=== PATIENT | female | born 1990 | race Caucasian/White ===

== ENCOUNTER 2017-06-07 19:06 | Emergency (ER) | payer SELFPAY ==
[2017-06-07 19:06] VITALS: BMI 107.6
[2017-06-07 19:20] VITALS: RESP 16; O2SAT 100
[2017-06-07 20:10] LABS: HCG,QUALITATIVE URINE POSITIVE (NEGATIVE); SQUAMOUS EPITHIAL 6 /hpf (0-5); URINE BACTERIA RARE (<OCC); URINE BILIRUBIN NEGATIVE (NEGATIVE); URINE CLARITY Hazy (Clear); URINE COLOR Yellow (YELLOW); URINE GLUCOSE (UA) NORMAL (Normal); URINE LEUKOCYTE ESTERASE NEG Leu/uL (Negative); URINE NITRATE NEGATIVE (NEGATIVE); URINE PROTEIN NEGATIVE (NEGATIVE); URINE UROBILINOGEN NORMAL mg/dL (0.2-1.0)
[2017-06-07 20:12] LABS: URINE BLOOD NEGATIVE (NEGATIVE)
[2017-06-07] MEDS ORDERED: Sodium Chloride 0.9% 1,000 ML IV ONE (21:01)
--- NOTE | 2017-06-07 21:01 | C.PDOC ---
History Of Present Illness Patient presents to the ER with a complaint of abdominal pain, nausea, and vomiting. Patient's LMP was 05/03; she is P:1 AB:1. Denies fever or chills. Time Seen by Provider: 06/07/17 21:01 Chief Complaint (Nursing): Abdominal Pain History Per: Patient History/Exam Limitations: no limitations Onset/Duration Of Symptoms: Days Current Symptoms Are (Timing): Still Present Location Of Pain/Discomfort: Epigastric Radiation Of Pain To:: None Quality Of Discomfort: Unable To Describe Associated Symptoms: Nausea, Vomiting. denies: Fever, Chills Exacerbating Factors: None Alleviating Factors: None Recent travel outside of the [place]: No Abnormal Vaginal Bleeding: No : 3 Para: 1 Miscarriage: 1 Past Medical History Reviewed: Historical Data, Nursing Documentation, Vital Signs Vital Signs: Last Vital Signs Temp 98.6 F 06/07/17 23:13 Pulse 82 06/07/17 23:13 Resp 16 06/07/17 23:13 BP 103/70 06/07/17 23:13 Pulse Ox 100 06/07/17 23:13 - Medical History PMH: No Chronic Diseases Surgical History: No Surg Hx Family History: States: Unknown Family Hx - Social History Hx Tobacco Use: No Hx Alcohol Use: No Hx Substance Use: No - Immunization History Hx Tetanus Toxoid Vaccination: Yes Hx Influenza Vaccination: No Hx Pneumococcal Vaccination: Yes Review Of Systems Constitutional: Negative for: Fever, Chills Gastrointestinal: Positive for: Nausea, Vomiting, Abdominal Pain Physical Exam - Physical Exam Appears: Non-toxic Skin: Warm, Dry Oral Mucosa: Moist Chest: Symmetrical, No Tenderness Cardiovascular: Rhythm Regular, No Murmur Respiratory: No Rales, No Rhonchi, No Wheezing Gastrointestinal/Abdominal: Soft, Tenderness (Mild epigastric) Neurological/Psych: Oriented x3 ED Course And Treatment - Laboratory Results Result Diagrams: 06/07/17 21:12 06/07/17 21:12 O2 Sat by Pulse Oximetry: 100 (Room air) Pulse Ox Interpretation: Normal Progress Note: Blood work ordered. IV fluids administered. Disposition Counseled Patient/Family Regarding: Studies Performed, Diagnosis, Need For Followup - Disposition Referrals: [facility] [Outside] [facility] [Outside] Disposition: HOME/ ROUTINE Disposition Time: 21:01 Condition: FAIR Instructions: Threatened Miscarriage (ED) - Clinical Impression Clinical Impression: Threatened in early - Scribe Statement The provider has reviewed the documentation as recorded by the Scribrich Harrison All medical record entries made by the Niloibe were at my direction and personally dictated by me. I have reviewed the chart and agree that the record accurately reflects my personal performance of the history, physical exam, medical decision making, and the department course for this patient. I have also personally directed, reviewed, and agree with the discharge instructions and disposition.
[2017-06-07] MEDS ORDERED: Sodium Chloride 0.9% 1,000 ML ONE (21:12)
[2017-06-07 21:21] LABS: BASO % 0.3 % (0.0-2.0); EOS # 0.1 K/uL (0.0-0.7); EOS % 0.8 % (0.0-4.0); HEMOGLOBIN 12.1 g/dL (11.0-16.0); LYMPH # 2.5 K/uL (1.0-4.3); LYMPH % 20.4 % (20.0-40.0); MEAN CELL VOLUME 81.4 fL (81.0-99.0); MEAN CORPUSCULAR HEMOGLOBIN 26.1 pg (27.0-31.0); MEAN PLATELET VOLUME 9.3 fL (7.2-11.7); MONO # 0.7 K/uL (0.0-0.8); MONO % 6.1 % (0.0-10.0); NEUT # 8.8 K/uL (1.8-7.0); NEUT % 72.4 % (50.0-75.0); RBC 4.64 Mil/uL (3.80-5.20); RED CELL DISTRIBUTION WIDTH 14.3 % (11.5-14.5); WHITE BLOOD COUNT 12.1 K/uL (4.8-10.8)
[2017-06-07 21:37] LABS: ALBUMIN 3.9 g/dL (3.5-5.0)
[2017-06-07 21:39] LABS: GFR AFRICAN-AMERICAN > 60; GFR NON-AFRICAN AMERICAN > 60
[2017-06-07 21:40] LABS: ALB/GLOB RATIO 1.2 (1.0-2.1); ALT/SGPT 22 U/L (9-52); AST/SGOT 28 U/L (14-36); BLOOD UREA NITROGEN 13 mg/dL (7-17)
--- NOTE | 2017-06-07 23:08 | US ---
EXAM: US First Trimester, Transabdominal CLINICAL HISTORY: 26 years old, female; Pain; complicated by abdominal or pelvic pain; Lower; First trimester; Gestational age or lmp: 05/09/2017; ; Additional info: Abd pain, TECHNIQUE: Real-time transabdominal obstetrical ultrasound of the maternal pelvis and a first trimester with image documentation. COMPARISON: No relevant prior studies available. FINDINGS: Gestation: Gestational sac. Yolk sac. No pole. Mean sac diameter of 0.89 cm, out of range. Uterus/cervix: No subchorionic hemorrhage. No cervical dilatation or effacement. Ovaries: RIGHT ovary: 5.0 x 4.2 x 4.6 cm anechoic lesion. LEFT ovary: Normal. No adnexal masses. Free fluid: No significant free fluid. IMPRESSION: 1. Intrauterine , of uncertain viability. Recommend followup. 2. RIGHT ovarian cyst. 3. Incidental/non-acute findings are described above. EXAM: US , Transvaginal CLINICAL HISTORY: 26 years old, female; Pain; complicated by abdominal or pelvic pain; Lower; First trimester; Gestational age or lmp: 05/09/2017; ; Additional info: Abd pain, TECHNIQUE: Real-time transvaginal obstetrical ultrasound of the maternal pelvis and a first trimester with image documentation. Transvaginal imaging was used for better evaluation of the fetus and adnexa. COMPARISON: No relevant prior studies available. FINDINGS: Gestation: Gestational sac. Yolk sac. No pole. Mean sac diameter of 0.89 cm, out of range. Uterus/cervix: No subchorionic hemorrhage. No cervical dilatation or effacement. Ovaries: RIGHT ovary: 5.0 x 4.2 x 4.6 cm anechoic lesion. LEFT ovary: Normal. No adnexal masses. Free fluid: No significant free fluid.
[2017-06-07 23:14] VITALS: BP 103/70; PULSE 82; TEMP 98.6
== END 2017-06-08 00:05 | disposition home or self-care (01) ==
LOC: C.ER 19:06
DX: O20.0 Threatened abortion (principal); Z3A.00 Weeks of gestation of pregnancy not specified
CPT/HCPCS: 76805; 76817; 80053; 81001; 84702; 84703; 85025; 86850; 86900; 96360; 99284; J7040

== ENCOUNTER 2017-06-14 19:18 | Emergency (ER) | payer SELFPAY ==
[2017-06-14 19:19] VITALS: BMI 107.6
--- NOTE | 2017-06-14 20:06 | C.PDOC ---
History Of Present Illness 26 year old female, P:1 AB:1, who presents to the ER for a repeat HCG. Patient was seen a few days ago for pelvic pain, had a work up done, and was told to return for a repeat HCG. The patient has no abdominal pain or vaginal bleeding at this time. Denies fever, chills, nausea, vomiting, or abdominal pain. LMP was 614. Time Seen by Provider: 06/14/17 19:45 Chief Complaint (Nursing): Medical Clearance History Per: Patient History/Exam Limitations: no limitations Onset/Duration Of Symptoms: Hrs Current Symptoms Are (Timing): Still Present Reports Recently: Seen In ED Recent travel outside of the [place]: No Past Medical History Reviewed: Historical Data, Nursing Documentation, Vital Signs Vital Signs: Last Vital Signs Temp 98 F 06/14/17 21:44 Pulse 78 06/14/17 21:44 Resp 20 06/14/17 21:44 BP 123/71 06/14/17 21:44 Pulse Ox 98 06/14/17 21:44 - Medical History PMH: No Chronic Diseases Surgical History: No Surg Hx Family History: States: Unknown Family Hx - Social History Hx Tobacco Use: No Hx Alcohol Use: No Hx Substance Use: No - Immunization History Hx Tetanus Toxoid Vaccination: Yes Hx Influenza Vaccination: Yes Hx Pneumococcal Vaccination: Yes Review Of Systems Constitutional: Negative for: Fever, Chills Cardiovascular: Negative for: Chest Pain, Palpitations Respiratory: Negative for: Cough, Shortness of Breath Gastrointestinal: Negative for: Nausea, Vomiting, Abdominal Pain Genitourinary: Negative for: Dysuria, Frequency, Incontinence, Vaginal Discharge , Vaginal Bleeding, Pelvic Pain Physical Exam - Physical Exam Appears: Non-toxic Skin: Normal Color, Warm, Dry, No Pale, No Rash Head: Atraumatic, Normacephalic Eye(s): bilateral: Normal Inspection Oral Mucosa: Moist Chest: Symmetrical, No Tenderness Cardiovascular: Rhythm Regular, No Murmur Respiratory: Normal Breath Sounds, No Rales, No Rhonchi, No Wheezing Gastrointestinal/Abdominal: Soft, No Tenderness Extremity: Normal ROM, No Swelling Neurological/Psych: Oriented x3, Normal Speech, Normal Cognition Gait: Steady ED Course And Treatment - Laboratory Results Lab Interpretation: Normal O2 Sat by Pulse Oximetry: 100 (Room air) Pulse Ox Interpretation: Normal Medical Decision Making Medical Decision Making: Beta HCG test ordered. HCG levels are raising normally. On re-exam, the patient reports that she feels well. Lungs are CTA, heart is RRR, Abdomen is soft, non- tender and patient is tolerating PO well. Follow up with the medical doctor within 1-2 days. Return if worsened. Disposition - Disposition Referrals: [facility] [Outside] Disposition: HOME/ ROUTINE Disposition Time: 21:10 Condition: GOOD Additional Instructions: Follow up with the medical doctor within 1-2 days. Return if worsened. Instructions: (ED) Forms: [employer] (Slovak) Print Language: TAIWANESE - Clinical Impression Clinical Impression: - Scribe Statement The provider has reviewed the documentation as recorded by the Scribe Kwadwo Harrison All medical record entries made by the Niloibe were at my direction and personally dictated by me. I have reviewed the chart and agree that the record accurately reflects my personal performance of the history, physical exam, medical decision making, and the department course for this patient. I have also personally directed, reviewed, and agree with the discharge instructions and disposition.
[2017-06-14 21:45] VITALS: BP 123/71; PULSE 78; RESP 20; TEMP 98
[2017-06-14 22:12] VITALS: O2SAT 100
== END 2017-06-14 21:43 | disposition home or self-care (01) ==
LOC: C.EROB 19:18
DX: Z32.01 Encounter for pregnancy test, result positive (principal)

== ENCOUNTER 2017-08-08 08:24 | Emergency (ER) | payer OTHER ==
[2017-08-08 08:24] VITALS: BMI 107.6
[2017-08-08 08:33] VITALS: O2SAT 99
--- NOTE | 2017-08-08 09:03 | C.PDOC ---
History Of Present Illness 26 year old female with no past medical history presents to the ED with complaints of intermittent gradual onset headache for one week with associated nausea. Patient notes pain has been worsening and constant since yesterday with one episode of vomiting today. She is A1 and is currently approximately three months . Patient denies history of headaches, fever, neck pain, dysuria, cough, shortness of breath, chest pain, or abdominal pain. Time Seen by Provider: 08/08/17 09:02 Chief Complaint (Nursing): Headache History Per: Patient History/Exam Limitations: no limitations Onset/Duration Of Symptoms: Days (1 week), Intermittent Episodes, Gradual, Worse Since (yesterday ) Current Symptoms Are (Timing): Still Present Preceeding Symptoms: None Associated Symptoms: Nausea, Vomiting (1 episode today ) Recent travel outside of the [place]: No Past Medical History Reviewed: Historical Data, Nursing Documentation, Vital Signs Vital Signs: Last Vital Signs Temp 98.0 F 08/08/17 11:44 Pulse 83 08/08/17 11:44 Resp 16 08/08/17 11:44 BP 110/72 08/08/17 11:44 Pulse Ox 99 08/08/17 11:44 Family History: States: Other Other Family History: Non-contributory. - Social History Hx Tobacco Use: No Hx Alcohol Use: No Hx Substance Use: No - Immunization History Hx Tetanus Toxoid Vaccination: Yes Hx Influenza Vaccination: Yes Hx Pneumococcal Vaccination: Yes Review Of Systems Except As Marked, All Systems Reviewed And Found Negative. Constitutional: Negative for: Fever Gastrointestinal: Negative for: Abdominal Pain Genitourinary: Negative for: Dysuria, Vaginal Bleeding Physical Exam - Physical Exam Appears: Well, Non-toxic, No Acute Distress Skin: Warm, Dry Head: Atraumatic Eye(s): bilateral: PERRL, EOMI Oral Mucosa: Moist Neck: Normal ROM, Supple Cardiovascular: Rhythm Regular Respiratory: No Decreased Breath Sounds, No Accessory Muscle Use, No Rales, No Rhonchi, No Wheezing Gastrointestinal/Abdominal: Soft, No Tenderness, Other (gravid) Extremity: No Swelling Neurological/Psych: Oriented x3, Normal Cranial Nerves, No Cerebellar Signs, Normal Motor, Normal Sensation, Other (no focal deficits) ED Course And Treatment O2 Sat by Pulse Oximetry: 99 (room air ) Progress Note: MRI of the brain without contrast was ordered. Patient was given tylenol and UA was performed. Ultrasound at bed side shows HR of 150 bpm. Medical Decision Making Medical Decision Makinam pt reports feeling better. disc MRI results, plan for rx, f/u, rtr. PROCEDURE: MRI BRAIN WITHOUT CONTRAST HISTORY: with headache x 1 week COMPARISON: None. TECHNIQUE: Multiplanar, multisequence MR images of the brain were obtained without intravenous contrast enhancement. FINDINGS: HEMORRHAGE: None DWI: No evidence of an acute or early subacute infarction. BRAIN PARENCHYMA: There is a questionable punctate area of increased subcortical long TR signal identified they right frontal lobe posteriorly but this is seen only in the sagittal FLAIR sequence and not the axial T2 or axial FLAIR sequences. This may be artifactual. The significance of this finding is uncertain. Remaining white and quezada matter signal above and below the tentorium is unremarkable including throughout the brainstem. There is no mass effect. There is no suspicious extra-axial collection appreciated and the midline brain anatomy appears normal including the corpus callosum. The craniocervical junction appears intact. VENTRICLES: Unremarkable. No hydrocephalus. CRANIUM: Unremarkable. ORBITS: Grossly unremarkable. PARANASAL SINUSES/MASTOIDS: Limited bilateral ethmoid mucosal inflammatory changes are identified. VASCULAR SYSTEM: Skull base flow voids intact. OTHER FINDINGS: None. IMPRESSION: 1. No acute intracranial hemorrhage, mass effect or definitive brain infarction is identified. A punctate area of increased long TR signal is appreciated at the right frontal lobe seen only on 1 sequence. The significance this finding is unclear and may be artifactual. Remaining brain parenchyma appears within normal limits including the cerebellum and brainstem. 2. Incidental trace ethmoid sinus disease bilaterally. Disposition - Disposition Disposition: HOME/ ROUTINE Disposition Time: 11:27 Condition: IMPROVED Additional Instructions: Please follow up with your doctor. Take medication as directed. Take tylenol for headache. Return to the ER for any worsening symptoms, fever, or for any other concerns. Prescriptions: Nitrofurantoin Macrocrystals [Macrobid] 100 mg PO BID #14 cap Instructions: Urinary Tract Infection in (ED) Forms: Gen Discharge Inst Irish, [facility] (Bulgarian) Print Language: ROMANIAN - Clinical Impression Clinical Impression: Headache, UTI in - Scribe Statement The provider has reviewed the documentation as recorded by the Scribe Priscila Espitia All medical record entries made by the Scribe were at my direction and personally dictated by me. I have reviewed the chart and agree that the record accurately reflects my personal performance of the history, physical exam, medical decision making, and the department course for this patient. I have also personally directed, reviewed, and agree with the discharge instructions and disposition.
[2017-08-08 09:09] LABS: RBC URINE 13 /hpf (0-3); URINE BACTERIA MOD (<OCC); URINE BILIRUBIN NEGATIVE (NEGATIVE); URINE BLOOD 1+ (NEGATIVE); URINE COLOR Red (YELLOW); URINE GLUCOSE (UA) NORMAL (Normal); URINE KETONE TRACE mg/dL (NEGATIVE); URINE LEUKOCYTE ESTERASE 2+ Leu/uL (Negative); URINE PROTEIN 1+ mg/dL (NEGATIVE); URINE UROBILINOGEN NORMAL mg/dL (0.2-1.0); WBC URINE 13 /hpf (0-5)
--- NOTE | 2017-08-08 11:15 | MRI ---
PROCEDURE: MRI BRAIN WITHOUT CONTRAST HISTORY: with headache x 1 week COMPARISON: None. TECHNIQUE: Multiplanar, multisequence MR images of the brain were obtained without intravenous contrast enhancement. FINDINGS: HEMORRHAGE: None DWI: No evidence of an acute or early subacute infarction. BRAIN PARENCHYMA: There is a questionable punctate area of increased subcortical long TR signal identified they right frontal lobe posteriorly but this is seen only in the sagittal FLAIR sequence and not the axial T2 or axial FLAIR sequences. This may be artifactual. The significance of this finding is uncertain. Remaining white and quezada matter signal above and below the tentorium is unremarkable including throughout the brainstem. There is no mass effect. There is no suspicious extra-axial collection appreciated and the midline brain anatomy appears normal including the corpus callosum. The craniocervical junction appears intact. VENTRICLES: Unremarkable. No hydrocephalus. CRANIUM: Unremarkable. ORBITS: Grossly unremarkable. PARANASAL SINUSES/MASTOIDS: Limited bilateral ethmoid mucosal inflammatory changes are identified. VASCULAR SYSTEM: Skull base flow voids intact. OTHER FINDINGS: None. IMPRESSION: 1. No acute intracranial hemorrhage, mass effect or definitive brain infarction is identified. A punctate area of increased long TR signal is appreciated at the right frontal lobe seen only on 1 sequence. The significance this finding is unclear and may be artifactual. Remaining brain parenchyma appears within normal limits including the cerebellum and brainstem. 2. Incidental trace ethmoid sinus disease bilaterally.
[2017-08-08 11:46] VITALS: BP 110/72; PULSE 83; RESP 16; TEMP 98
== END 2017-08-08 11:52 | disposition home or self-care (01) ==
LOC: C.ER 08:24
DX: O26.891 Other specified pregnancy related conditions, first trimester (principal); R51 Headache; O23.41 Unspecified infection of urinary tract in pregnancy, first trimester; Z3A.00 Weeks of gestation of pregnancy not specified

== ENCOUNTER 2017-12-12 14:56 | Emergency (ER) | payer OTHER ==
[2017-12-12] MEDS ORDERED: Lactated Ringer's 1,000 ML IV ONE (15:25)
[2017-12-12 16:06] LABS: BASO % 0.2 % (0.0-2.0); EOS # 0.1 K/uL (0.0-0.7); EOS % 0.6 % (0.0-4.0); HEMOGLOBIN 9.7 g/dL (11.0-16.0); LYMPH # 1.6 K/uL (1.0-4.3); LYMPH % 12.5 % (20.0-40.0); MEAN CELL VOLUME 80.5 fL (81.0-99.0); MEAN CORPUSCULAR HEMOGLOBIN 26.5 pg (27.0-31.0); MEAN CORPUSCULAR HGB CONC 32.9 g/dL (33.0-37.0); MEAN PLATELET VOLUME 9.7 fL (7.2-11.7); MONO # 0.8 K/uL (0.0-0.8); MONO % 6.5 % (0.0-10.0); NEUT # 10.1 K/uL (1.8-7.0); NEUT % 80.2 % (50.0-75.0); NRBC % 0.1 % (0.0-2.0); RBC 3.67 Mil/uL (3.80-5.20); RED CELL DISTRIBUTION WIDTH 15.2 % (11.5-14.5); WHITE BLOOD COUNT 12.5 K/uL (4.8-10.8)
[2017-12-12 16:29] LABS: ALBUMIN 3.3 g/dL (3.5-5.0); ALT/SGPT 15 U/L (9-52); AMYLASE 94 U/L (30-110); AST/SGOT 20 U/L (14-36); BLOOD UREA NITROGEN 7 mg/dL (7-17); CALCIUM 8.3 mg/dl (8.6-10.4); GFR AFRICAN-AMERICAN > 60; GFR NON-AFRICAN AMERICAN > 60; LIPASE 128 U/L (23-300)
[2017-12-12 16:30] LABS: SQUAMOUS EPITHIAL 9 /hpf (0-5); URINE BACTERIA FEW (<OCC); URINE BILIRUBIN NEGATIVE (NEGATIVE); URINE BLOOD 1+ (NEGATIVE); URINE CLARITY Hazy (Clear); URINE COLOR Yellow (YELLOW); URINE GLUCOSE (UA) NORMAL (Normal); URINE LEUKOCYTE ESTERASE TRACE Leu/uL (Negative); URINE NITRATE NEGATIVE (NEGATIVE); URINE PROTEIN 1+ mg/dL (NEGATIVE)
[2017-12-12] MEDS ORDERED: cefOXitin IV 2 gm in Dextrose 2 GM/50 ML BAG IVPB ONE (16:59)
--- NOTE | 2017-12-12 19:24 | US ---
EXAM: US After First Trimester, Transabdominal CLINICAL HISTORY: 27 years old, female; Signs and symptoms; Other: Decrease movement; LMP 04/29/17 ; Additional info: Decreased movement TECHNIQUE: Real-time transabdominal obstetrical ultrasound of the maternal pelvis and a second or third trimester with image documentation. COMPARISON: No relevant prior studies available. FINDINGS: Fetus: There is a single living intrauterine gestation in cephalic presentation. There is a heart rate of 144 beats per minute. Placenta: Placenta is anterior. Placenta is grade 2-3. There is no previa or abruption. Amniotic fluid: Amnionic fluid index measures 14.57 cm. Anatomy: There is a four-chamber heart and a three-vessel cord. Brain and spine incompletely evaluated due to positioning and artifact. There are kidneys in both flanks. Stomach and bladder are not well-visualized due to positioning. BIOMETRICS Gestational age by US: 33 weeks 0 days EFW: 2005 g BPD: 8.55 cm, 34 weeks 3 days HC: 29.48 cm, 32 weeks 4 days AC: 28.40 cm, 32 weeks 3 days FL: 6.24 cm, 32 weeks 2 days MATERNAL: Cervix: Cervix measures approximately 3.4 cm in length. IMPRESSION: 33 week 0 day single cephalic fetus, estimated date of delivery 01/30/18 EXAM: US Biophysical Profile Without Non-Stress Testing EXAM DATE/TIME: 12/12/2017 3:19 PM CLINICAL HISTORY: 27 years old, female; Signs and symptoms; Other: Decrease movement; ; Additional info: Decreased movement TECHNIQUE: Real-time ultrasound of the maternal pelvis for biophysical profile evaluation with image documentation. COMPARISON: PELVIS/TRANSVAG US 2016-02-09 14:43 FINDINGS: Biophysical profile:. Fetus was evaluated for movement, breathing, tone and fluid volume. A score of 2/2 was given for each parameter IMPRESSION: Normal 8/8 biophysical profile
[2017-12-12 23:43] VITALS: BP 113/79; PULSE 92; TEMP 98.4; O2SAT 100
--- NOTE | 2017-12-13 06:42 | OBHP ---
Datetime: 12/12/2017 15:40 IP Adm Impression: , intrauterine IP Adm Impression Other: uti IP Admit Plan: Discharge home Admit Comment, IP Provider: Patient is a 26 year old at 32w3d MORENO 02/03/18 by LMP 04/29/17 pre sents to L+D for pelvic pain. Patient states that she started having intermittent pelvic pain this mo rning, q5min with pinkish/pale vaginal spotting. Rates the pain 07/30. Also states having 2 episodes o f NBNB vomiting after eating rice and pork today. Reports feeling no FM since 8am this morning. Admit s to having intercourse last night. Denies LOF. Denies sick contacts, trauma, fevers, chills, headach es, dizziness, cp, palpitations, sob, urinary symptoms, diarrhea/constipation. Issues: Denies Patient goes to [facility] for care OB Hx: 1. 2010 at term, no complications 2. 2014 SAB at 12 weeks 3. Current [employer] Hx: LMP - 04/29/17 [facility] - 11/regular/5 days Hx of fibroids Denies abnormal paps, ovarian cysts, STIs Allergies: NKDA Medications: PNV, [employer] Hx: Denies Surgical Hx: Ankle surgery Social Hx: Denies alcohol, tobacco, drugs use; Works at a factory Family Hx: Denies PE: See above A/P: 26 year old at 32w3d presents with pelvic pain, vomiting -Stable, afebrile -CEFM and TOCO -Labs: CBC, CMP, UA, Amylase, Lipase -Lactated Ringers bolus -Tylenol 650mg PO STAT -Will send for BPP and growth scan -Plan discussed with attending Alivia Blair DO PGY-1 OB addendum: Patient was called back to US per Radiologist request. Upon converstaion with radiolo gist, recommendation was made for growth scan. Patient advised to have growth scan done. Blood results and UA results reviewed, patient given Cefoxitin 2gm and prescription for Macrobid 100m g PO BID x 7 days. Patient feeling beter, patient to follow up with [facility] within 1 week. lab or precautions given. Increase PO hydration. Plan discussed with attending. Alivia Blair DO PGY-1 Patient examined,agree with resident exam, assessment and plan A/P UTI Patient given iv cefoxitin one dose scriot for macrobid given patient strongly recommended to follow up in clinic in am and do growth scan sung Pelvic Type - PN: Adequate Extremities - PN: Normal Abdomen - PN: Normal Back - PN: Normal Lungs - PN: Normal Heart - PN: Normal Neurologic - PN: Normal General - PN: Normal FHR - Baseline A Provider: 135 Contraction Comments Provider: irritability Comments, ACOG Physical Exam: VSS Gen: AAOx3 CV: RRR Lungs: CTA B/L Abd: Soft, gravid, no fundal tenderness Ext: No clubbing, cyanosis, edema SSE: No active bleeding, milky white discharge SVE: Closed/thick/high EGA AdmitDate IP: 32.3 Vital Signs Provider: Reviewed; Within Normal Limits IP Chief Complaint: Decreased movement; Maternal discomfort; Other NICHD Variability Prov Fetus A: Moderate 6-25bpm NICHD Accel Fetus A IP Provider: [id number] FHR Category Provider Fetus A: Category I NICHD Decel Fetus A IP Provider: None Dilatation, Provider: closed Effacement, Provider: thick Station, Provider: high Genitourinary Exam: Normal DTRs - PN: Normal
== END 2017-12-12 19:42 | disposition home or self-care (01) ==
LOC: C.EROB 14:56
DX: O26.93 Pregnancy related conditions, unspecified, third trimester (principal); R10.2 Pelvic and perineal pain; Z3A.32 32 weeks gestation of pregnancy
CPT/HCPCS: 76815; 76818; 80053; 81001; 82150; 83690; 85025; 96374; 99283; J7120